=== PATIENT | male | born 1935 | race Caucasian/White ===

== ENCOUNTER 2017-08-23 06:08 | Day surgery (SDC) | payer MEDICARE, BC ==
[2017-08-20 13:02] VITALS: BMI 23.8
--- NOTE | 2017-08-20 15:10 | HP ---
HISTORY AND PHYSICAL Mr. Romero has been coming to the office for history of claudication. His symptoms are becoming disabled affecting both calf area. Patient had a non invasive study which showed bilateral SFA and infrapopliteal occlusive disease. Patient has history of hypertension, chronic kidney disease. We asked for the clearance and the patient was seen by Nephrology out of town from [facility] recommended CO2 angiography. Patient is scheduled to have this procedure on Wednesday. MEDICAL HISTORY: History of hypertension, chronic kidney disease. PERSONAL HISTORY: No known allergies. PHYSICAL EXAMINATION: NECK: Supple, trachea central. CHEST: Clear. ABDOMEN: Soft, nontender. VASCULAR EXAMINATION: Brachial and radial pulses are present. Femorals are palpable. Posterior vascular is not palpable. Central nerves normal motor function. IMPRESSION: SFA and infrapopliteal occlusive disease. PLAN: CO2 angiogram. Risks and complications, bleeding, infection has been discussed. MMODL / IJN: [id number] /
[~2017-08-23 06:08] MED LIST: ALPRAZolam 0.25 MG TAB PO PRN; ASPIRIN 325 MG TAB PO STA; SODIUM CHLORIDE 0.9% 1,000 ML in EMPTY BAG 1 BAG IV ONE
[2017-08-23 06:58] VITALS: TEMP 98
[2017-08-23] MEDS: MIDAZOLAM 2 MG/2 ML VIAL IV ONE ×2 (07:30→07:50)
[2017-08-23] MEDS ORDERED: LIDOCAINE 2% INJ 20 MG/ML SQ ONE ×2 (07:30→07:38)
[2017-08-23 07:59] LABS: Basophils % (A) 1 %; Eosinophils # (A) 0.7 k/uL (0-0.7); Eosinophils % (A) 13 %; HCT 35.8 % (39.0-53.0); HGB 12.4 gm/dL (13.0-17.5); Lymphocytes # (A) 1.3 k/uL (1.0-4.8); Lymphocytes % (A) 26 %; MCH 30.9 pg (25.0-35.0); MCHC 34.7 g/dL (31.0-37.0); MCV 88.9 fL (80.0-100.0); Monocytes # (A) 0.5 k/uL (0-1.0); Monocytes % (A) 10 %; Neutrophils # (A) 2.4 k/uL (1.3-7.7); Neutrophils % (A) 48 %; Platelet Count 196 k/uL (150-450); RBC 4.03 m/uL (4.30-5.90); RDW 12.8 % (11.5-15.5); WBC 4.9 k/uL (3.8-10.6)
[2017-08-23] MEDS ORDERED: fentaNYL (PF) 50 MCG/ML 2 ML AMP IV ONE (08:10)
[2017-08-23 08:22] LABS: Calcium 9.6 mg/dL (8.4-10.2); Potassium 4.2 mmol/L (3.5-5.1)
[2017-08-23] MEDS ORDERED: SODIUM CHLORIDE 0.9% 1,000 ML IV SCH (09:15)
[2017-08-23 10:20] VITALS: BP 147/70; PULSE 78; RESP 18
--- NOTE | 2017-08-23 11:08 | IR ---
EXAMINATION TYPE: IR angio abdominal w runoff DATE OF EXAM: 08/23/2017 COMPARISON: NONE HISTORY: Peripheral vascular occlusive disease. Fluoroscopy was provided to the referring clinician. See dictated report from cardiology.
--- NOTE | 2017-08-23 11:46 | AN ---
ANGIOGRAPHY REPORT PROCEDURE: CO2 angiography with aortogram with runoff. PROCEDURE DESCRIPTION: This patient was brought to the [facility]. Right and left groins were prepped and draped in a sterile manner; 1% lidocaine plain in the right groin and micropuncture introduced to common femoral artery, common femoral were heavily calcified, we could not pass the dilator. Several attempts were made. Then, we chose to go to the left groin and left groin, 1% lidocaine was infiltrated and micropuncture into the left common femoral artery and 4-[place] Islander dilator on the top of the guidewire. Then we passed a regular guidewire which was parked at the renal level and 5-[place] Islander sheath was advanced on the top of the guidewire. Then, we used a pigtail catheter on the top of the guidewire which she was hooked to the CO2 bag. First we did the abdomen, did the aortogram and by injecting the CO2, aorta was found to be patent, but there was some atherosclerosis disease. Right and left common iliac artery was found to be patent. Right and left external iliac artery was patent. Common femoral artery, there was heavy calcification noted in the right common femoral artery, but was patent and left common femoral artery was patent. Profunda, the right and left profunda were found to be patent. Superficial femoral artery, there was a long segment occlusion of the right superficial femoral artery which reconstitutes above the knee on the left side. There was some at the Salomon's canal. There was about 50% stenosis noted of the left superficial femoral artery, infrapopliteal vessel on the right side. The anterior tibial artery was found to be patent proximally, distally was occluded. Posterior tibial has severe atherosclerosis disease, apparently was found to be patent on the left side. Left popliteal is patent and anterior tibial was found to be patent and posterior tibial was found to be patent. Catheter was removed. Sheath was removed. Pressure was held. Patient tolerated the procedure well. PREOP DIAGNOSIS: SFA and infrapopliteal occlusive disease. SECONDARY DIAGNOSIS: Diabetes myelitis. This patient has his history of chronic renal failure and BUN and creatinine were high. We decided to go do the CO2 angiogram which we performed today, which she tolerated well. PLAN: Patient is going home today. Will follow up in the office next week. Puncture site has no hematoma. Pulses are present about the Doppler. MMODL / IJN: [id number] /
--- NOTE | 2017-08-25 14:26 | CDI ---
Outpatient Documentation Clarification Form Date: 08/25/17 CDS/Director Audience Marketing Name: Sonya Baird Phone: If any questions, call Dolly Jones Singing Teacher at [phone] Patient Name: Fortunato Romero Admit Date: 08/23/17 Discharge Date: 08/23/17 ATTENTION: The [facility] Coding Staff appreciate your assistance in clarifying documentation. Please respond to the clarification below the line at the bottom and electronically sign. The [facility] Coding staff will review the response and follow-up if needed. Please note: Queries are made part of the Legal Health Record. If you have any questions, please contact the Singing Teacher. Dear Dr. Rodríguez, The angiography report mentions stenosis of the left SFA and atherosclerosis of the posterior tibial, without mention of side (left or right). Does the patient have atherosclerosis of arteries bilaterally, or only on the left? Thank you for your kind consideration. MTDD
--- NOTE | 2017-08-31 16:02 | CDI ---
Outpatient Documentation Clarification Form Date: 08/25/17 CDS/Undercoat Sprayer Name: Sonya Baird Phone: If any questions, call Dolly Jones Principal Systems Engineer at [phone] Patient Name: Fortunato Romero Admit Date: 08/31/17 Discharge Date: 08/31/17 ATTENTION: The [facility] Coding Staff appreciate your assistance in clarifying documentation. Please respond to the clarification below the line at the bottom and electronically sign. The [facility] Coding staff will review the response and follow-up if needed. Please note: Queries are made part of the Legal Health Record. If you have any questions, please contact the Principal Systems Engineer. Dear Dr. Rodríguez, The angiography report mentions stenosis of the left SFA and atherosclerosis of the posterior tibial, without mention of side (left or right). Does the patient have atherosclerosis of arteries bilaterally, or only on the left? Thank you for your kind consideration. MTDD
--- NOTE | 2017-09-09 15:13 | CDI ---
Outpatient Documentation Clarification Form Date: 09/08/17 CDS/Colorist Formulator Name: Sonya Baird Phone: If any questions, call Dolly Jones Senior Consultant at [phone] Patient Name: Fortunato Romero Admit Date: 08/23/17 Discharge Date: 08/23/17 ATTENTION: The [facility] Coding Staff appreciate your assistance in clarifying documentation. Please respond to the clarification below the line at the bottom and electronically sign. The [facility] Coding staff will review the response and follow-up if needed. Please note: Queries are made part of the Legal Health Record. If you have any questions, please contact the Senior Consultant. Dear Dr. Rodríguez, The angiography report mentions stenosis of the left SFA and atherosclerosis of the posterior tibial, without mention of side (left or right). Does the patient have atherosclerosis of arteries bilaterally, or only on the left? Thank you for your kind consideration. MTDD
== END 2017-08-23 13:30 | disposition home or self-care (01) ==
LOC: CATHCVL 06:08
PROVIDERS: ATTEND Surgery Vascular Surgery
DX: I70.213 Atherosclerosis of native arteries of extremities with intermittent claudication, bilateral legs (principal); I70.0 Atherosclerosis of aorta; I77.9 Disorder of arteries and arterioles, unspecified; E11.51 Type 2 diabetes mellitus with diabetic peripheral angiopathy without gangrene; E11.22 Type 2 diabetes mellitus with diabetic chronic kidney disease; I12.9 Hypertensive chronic kidney disease with stage 1 through stage 4 chronic kidney disease, or unspecified chronic kidney disease; N18.9 Chronic kidney disease, unspecified
CPT/HCPCS: 36200; 75625; 75716; 80048; 85025; C1769 ×5; C1894; J2001; J2250; J3010

== ENCOUNTER → 2018-01-03 | Outpatient (CLI) | payer MEDICARE, BC ==
--- NOTE | 2018-01-03 08:26 | CT ---
EXAMINATION TYPE: CT abdomen pelvis wo con DATE OF EXAM: 01/03/2018 COMPARISON: None HISTORY: weight loss and pain CT DLP: 280.7 mGycm Examination of the solid and hollow viscera is limited given the lack of contrast. FINDINGS: LUNG BASES: Small basilar fibrosis noted. Nonspecific Nodular density measuring 7.8 mm left lower lob e. LIVER/GB: The gallbladder is unremarkable. No space-occupying hepatic lesion. PANCREAS: No pancreatic mass identified. No inflammatory process seen. SPLEEN: No evidence for splenomegaly. No intrasplenic lesions seen. ADRENALS: No adrenal nodules identified. No evidence for thickening. KIDNEYS: No evidence for solid renal mass. Hypoattenuating lesion mid pole right kidney posteriorly m easuring 1.3 cm. No nephrolithiasis. No hydronephrosis. BOWEL: Small sliding-type hiatal hernia. Appendix has a normal appearance. No evidence of bowel obstr uction. No inflammatory process. Small left inguinal hernia containing a small segment of colon. Lymph nodes: No evidence for adenopathy greater than 1 cm. Abdominal aorta: Extensive atheromatous changes abdominal aorta. Dense calcification at the origins o f the celiac and SMA vessels and proximal branches. No evidence for aneurysm. Genital organs: No significant abnormality. Other: No significant abnormality. IMPRESSION: 1.Extensive atheromatous changes abdominal aorta. Dense calcification at the origins of the celiac an d SMA vessels and proximal branches. 2.Small left inguinal hernia containing a small segment of colon. 3.Nonspecific Nodular density measuring 7.8 mm left lower lobe.
== END | disposition home or self-care (01) ==
LOC: RADCTMAIN 07:44
PROVIDERS: ATTEND General Practice
DX: K40.90 Unilateral inguinal hernia, without obstruction or gangrene, not specified as recurrent (principal); I70.0 Atherosclerosis of aorta
CPT/HCPCS: 74176

== ENCOUNTER → 2018-02-03 | Outpatient (CLI) | payer MEDICARE, BC ==
--- NOTE | 2018-02-03 14:18 | CT ---
EXAMINATION TYPE: CT ChestAbdPelvis wo con DATE OF EXAM: 02/03/2018 COMPARISON: Abdomen and pelvis 01/03/2018 HISTORY: 82-year-old male pelvic pain syndrome, abdominal pain, solitary pulmonary nodule abnormal fi nding on left lung TECHNIQUE: Contiguous axial scanning of the chest, abdomen, and pelvis without IV contrast. Coronal a nd sagittal reconstructions performed. CT DLP: 371.0 mGycm Automated exposure control for dose reduction was used. FINDINGS: Chest: Heart normal size without pericardial effusion. Coronary vessel calcifications are present. Aorta normal caliber with conventional arch vessel branching anatomy. Mild sclerotic arch calcificati ons. A few scattered nonenlarged mediastinal lymph nodes. No thoracic lymphadenopathy by CT size criteria. Subpleural reticulations throughout the bilateral lungs. There is a 8 mm peripheral left lower lobe p ulmonary nodule, axial image 46. No consolidation or pleural effusion. No additional suspicious pulmonary nodule or mass is seen. ABDOMEN: Small hiatal hernia. Noncontrast appearance of the liver, gallbladder, adrenal glands, spleen, and pancreas show no gross abnormality. 1.3 cm exophytic hypodense lesion posterior right kidney and 7 mm exophytic hypodense lesion medial l eft kidney, both of which are too small for accurate CT characterization but were present previously and suggestive of cysts. No nephrolithiasis or hydronephrosis. Moderate atherosclerotic calcifications throughout the abdominal aorta and iliac arteries with variab le atelectatic calcification at the origins of the celiac axis, SMA, and left renal artery. There is 2.3 cm fusiform dilatation of the infrarenal abdominal aorta without thomas aneurysm. No dilated small bowel, free fluid, or free air. Normal appendix. Mild stool burden. Mild diverticulosis of the junction of the descending and sigmoid colon. No liyah lonic inflammatory change. No mesenteric or retroperitoneal lymphadenopathy seen. Pelvis: Mild circumference of bladder wall thickening. Prostate gland measures 3.5 cm wide. Suggestion of alison ateral hydroceles. No abnormal fluid collection otherwise seen in the pelvis or pelvic lymphadenopath y. Bones: Mild degenerative changes of both hips. Mild degenerative changes throughout the visualized spine. No osseous destructive process. IMPRESSION: 1. MILD INTERSTITIAL FIBROSIS WITH AN 8 MM PERIPHERAL LEFT LOWER LOBE PULMONARY NODULE. 6 MONTH FOLLO W-UP CT RECOMMENDED. 2. SMALL HIATAL HERNIA AND MILD DIVERTICULOSIS IN THE DISTAL COLON. 3. SUGGESTION OF BILATERAL SCROTAL HYDROCELES, PARTIALLY IMAGED. DEDICATED SCROTAL ULTRASOUND IF CLIN ICALLY INDICATED.
== END | disposition home or self-care (01) ==
LOC: RADCTMAIN 11:38
PROVIDERS: ATTEND General Practice
DX: K44.9 Diaphragmatic hernia without obstruction or gangrene (principal); K57.30 Diverticulosis of large intestine without perforation or abscess without bleeding; J84.10 Pulmonary fibrosis, unspecified; R91.1 Solitary pulmonary nodule
CPT/HCPCS: 71250; 74176

== ENCOUNTER → 2018-07-25 | Outpatient (CLI) | payer MEDICARE, BC ==
--- NOTE | 2018-07-25 09:48 | CT ---
EXAMINATION TYPE: CT chest wo con DATE OF EXAM: 07/25/2018 COMPARISON: Prior CT 02/03/2018 HISTORY: Solitary pulmonary nodule CT DLP: 224.4 mGycm. Automated Exposure Control for Dose Reduction was Utilized. TECHNIQUE: CT scan of the thorax is performed without IV contrast. FINDINGS: Lack of contrast could compromise sensitivity. LUNGS: The lungs are remarkable for interstitial changes, nodular density in the subpleural location in the left lower lobe is stable. There is no pleural effusion or pneumothorax seen. The tracheobr onchial tree is patent. MEDIASTINUM: Lack of IV contrast is noted to limit evaluation for mediastinal and especially hilar ad enopathy. There are no definitive greater than 1 cm hilar or mediastinal lymph nodes. No cardiomega ly or pericardial effusion is seen. OTHER: There are dense coronary artery calcifications as on prior exam. Dense mesenteric, atheroscler otic aortic calcifications are present. Exophytic probable cortical cyst present upper pole right kid karen measures approximately 14 mm similar to prior exam, smaller lesion in the medial aspect of the le ft kidney midpole is also stable. IMPRESSION: No significant interval change.
--- NOTE | 2018-07-25 11:10 | US ---
EXAMINATION TYPE: US scrotum with doppler. Grayscale and color Doppler Duplex imaging performed of t bertin scrotum. DATE OF EXAM: 07/25/2018 COMPARISON: NONE CLINICAL HISTORY: R91.1 Solitary Pulmonary Nodule N50.82 Pain. EXAM MEASUREMENTS: TESTICLES: Right Testicle: 4.9 x 2.1 x 3.4 cm Left Testicle: 4.8 x 2.5 x 3.4 cm EPIDIDYMIS HEAD: Right Epididymis: 0.8 cm Left Epididymis: 0.8 cm Doppler performed to assess for testicular vascularity; good bilateral color flow and waveforms are s een. There is no evidence of testicular torsion. Presence of hydroceles: small right hydrocele measuring 1.2 x 0.8 x 1.5cm Presence of varicoceles: no IMPRESSION: Small right hydrocele is seen. Otherwise unremarkable testicular ultrasound.
== END | disposition home or self-care (01) ==
LOC: RADCTMAIN 07:23
PROVIDERS: ATTEND General Practice
DX: N43.3 Hydrocele, unspecified (principal); R91.1 Solitary pulmonary nodule; Z87.891 Personal history of nicotine dependence
CPT/HCPCS: 71250; 76870; 93975

== ENCOUNTER → 2021-12-22 | Outpatient (CLI) | payer MEDICARE ==
--- NOTE | 2021-12-22 13:45 | CT ---
EXAMINATION TYPE: CT ChestAbdPelvis wo con DATE OF EXAM: 12/22/2021 COMPARISON: Prior whole body CT February 03, 2018 HISTORY: WEIGHT LOSS CT DLP: 350.5 mGycm. Automated Exposure Control for Dose Reduction was Utilized. TECHNIQUE: CT scan of the thorax, abdomen and pelvis is performed without oral or IV contrast. FINDINGS: LUNGS: Moderate peripheral reticulation and fibrotic change bilaterally is redemonstrated. Stable 8 m m peripheral left lower lobe nodule axial image 50. No pleural effusion or pneumothorax seen bilatera lly. No new or enlarging greater than 6 mm pulmonary nodules or masses. No suspicious focal consolida tion. MEDIASTINUM: There are no new greater than 1 cm mediastinal lymph nodes. No cardiomegaly or perica rdial effusion is seen. Severe three-vessel coronary artery calcification is redemonstrated. LIVER/GB: No significant abnormality is appreciated. PANCREAS: No significant abnormality is seen. SPLEEN: No significant abnormality is seen. ADRENALS: No significant abnormality is seen. KIDNEYS: No significant abnormality is seen. BOWEL: Suboptimal evaluation without enteric contrast. No suspicious small large bowel dilatation. Fe w diverticula in the sigmoid colon left pelvis. GENITAL ORGANS: Mildly enlarged prostate consistent with BPH. LYMPH NODES: No greater than 1cm abdominal or pelvic lymph nodes are appreciated. OSSEOUS STRUCTURES: Osseous structures are demineralized. Facet arthropathy lower lumbar spine. OTHER: Moderate to severe calcified plaque of the aorta extends into branch vessels. IMPRESSION: No obvious new mass or adenopathy on noncontrast CT.
== END | disposition home or self-care (01) ==
LOC: RADCTMAIN 12:54
PROVIDERS: ATTEND Internal Medicine
DX: R63.4 Abnormal weight loss (principal)
CPT/HCPCS: 71250; 74176

== ENCOUNTER → 2023-12-22 | Outpatient (CLI) | payer MEDICARE ==
[2023-12-22 15:18] LABS: Basophils # (A) 0.06 X 10*3/uL (0.00-0.10); Eosinophils # (A) 1.01 X 10*3/uL (0.04-0.35); HCT 36.2 % (39.6-50.0); HGB 12.1 g/dL (13.0-17.0); Lymphocytes # (A) 1.69 X 10*3/uL (0.90-5.00); Lymphocytes % (A) 28.4 %; MCH 32.3 pg (27.0-32.0); MCHC 33.4 g/dL (32.0-37.0); MCV 96.5 FL (80.0-97.0); Mean Platelet Volume 11.3 FL (9.5-12.2); Monocytes # (A) 0.67 X 10*3/uL (0.20-1.00); Monocytes % (A) 11.3 %; NRBC Per 100 WBC 0 X 10*3/uL (0.00-0.01); Platelet Count 164 X 10*3/uL (140-440); RBC 3.75 X 10*6/uL (4.40-5.60); RDW 13.3 % (11.5-14.5); WBC 5.95 X 10*3/uL (4.50-10.00)
[2023-12-22 15:36] LABS: ALT 16 U/L (10-49); AST 28 U/L (14-35); Albumin 4.4 g/dL (3.8-4.9); Alkaline Phosphatase 53 U/L (41-126); BUN/Creat Ratio 12.18 Ratio (12.00-20.00); Blood Urea Nitrogen 20.7 mg/dL (9.0-27.0); Calcium 9.6 mg/dL (8.7-10.3); Chloride 101 mmol/L (96-109); Chol/HDL Ratio 1.84 Ratio; Glucose 104 mg/dL (70-110); LDL Cholesterol,Calculated 45.3 mg/dL (0.0-131.0); Potassium 5.4 mmol/L (3.5-5.5); Sodium 133 mmol/L (135-145); T4, Free (Free Thyroxine) 1.47 ng/dL (0.80-1.80); Total Bilirubin 0.7 mg/dL (0.3-1.2); Total Protein 6.4 g/dL (6.2-8.2)
== END | disposition home or self-care (01) ==
LOC: LABWHC1 08:59
PROVIDERS: ATTEND Internal Medicine
DX: I10 Essential (primary) hypertension (principal); E78.5 Hyperlipidemia, unspecified; E03.9 Hypothyroidism, unspecified; D64.9 Anemia, unspecified; R73.9 Hyperglycemia, unspecified
CPT/HCPCS: 36415; 80053; 80061; 82607; 82746; 83036; 84439; 84443; 85025

== ENCOUNTER → 2023-12-27 | Outpatient (CLI) | payer MEDICARE ==
--- NOTE | 2024-01-27 19:33 | CT ---
Patient Nick Bucio T ID [id number] Order # EXAMINATION TYPE: CT chest wo con DATE OF EXAM: 01/07/2024 COMPARISON: No comparison available on downtime PACS. HISTORY: Lung nodule CT DLP: 162.50 mGycm, Automated exposure control for dose reduction was used. CONTRAST: Performed injected with 0 mL of Isovue 300. TECHNIQUE: Axial images were obtained at 5 mm thick sections. Reconstructed images are reviewed on [employer] computer in the coronal plane. FINDINGS: Portion of the thyroid visualized is normal. Infiltrate is in the periphery of the lateral right apex. This is along the pleural margin measuring approximately 2.5 x 1.1 cm. Follow-up is recommended. There is a 0.6 cm nodule anterior right midlung. Series 4 image 34. Follow-up exam in 6 months is rec ommended. There is a punctate peripheral nodular density anterior lateral right lung. Series 4 image 37. There is a 0.7 cm peripheral nodule posterior lateral left lung. Series 4 image 48. There are multiple peripheral scattered areas of increased density. Some paraseptal emphysematous jennifer nge may be present. No enlarged mediastinal or hilar adenopathy is evident. The ascending aorta diameter at the level o f the main pulmonary artery is 3.2 cm. The main pulmonary artery diameter at the bifurcation is 2.4 cm. Coronary artery calcification is present. Limited CT sections are obtained through the upper abdomen. Abdomen is essentially unremarkable. IMPRESSION: 1. Scattered small nodules in infiltrate discussed above. 2. Findings likely superimposed on emphysematous change. Consider paraseptal emphysema. 3. Comparison images are unavailable to evaluate for interval change this time.
== END | disposition home or self-care (01) ==
LOC: RADCTMAIN 10:45
PROVIDERS: ATTEND Internal Medicine
DX: R91.8 Other nonspecific abnormal finding of lung field (principal)
CPT/HCPCS: 71250

== ENCOUNTER → 2024-06-23 | Outpatient (CLI) | payer MEDICARE ==
--- NOTE | 2024-06-23 15:04 | CT ---
EXAMINATION TYPE: CT chest wo con DATE OF EXAM: 06/23/2024 COMPARISON: 12/27/2023 HISTORY: 88-year-old male R91.1 f/u lung nodules TECHNIQUE: Contiguous axial scanning of the chest without IV contrast. Coronal/sagittal reconstructio ns performed. CT DLP: 132.5mGycm. Automatic exposure control utilized for a dose reduction. FINDINGS: The heart is normal size without pericardial effusion. LAD and RCA coronary calcifications are presen t. Aorta normal caliber with possible mild or moderate atherosclerotic narrowing at the origin of the le ft subclavian artery. Borderline to mild enlarged caliber main right and left pulmonary arteries up to 2.6 cm may reflect u nderlying pulmonary hypertension. No thoracic lymphadenopathy by CT size criteria. Subpleural reticular and microcystic change along with mild groundglass throughout the lungs. Mild bi apical pleural-parenchymal scarring. No consolidation or pleural effusion. There is a 7 mm posterior left lower lobe pulmonary nodule which remains unchanged compatible with a benign etiology. A couple additional tiny 4 mm smaller pulmonary nodules are unchanged as well. Visualized upper abdomen shows a benign cortical cyst posterior right kidney measuring 1.8 cm and mod erate to severe atherosclerotic calcifications of the abdominal aorta and celiac axis/SMA. Bones: Moderate degenerative disc disease mid to lower thoracic spine. IMPRESSION: 1. Stable 7 mm left lower lobe pulmonary nodule compatible with a benign etiology. 2. Redemonstrated peripheral interstitial changes in the lungs characterized by groundglass, reticula r and subpleural microcystic change. Not significantly changed from 12/27/2023. Consider interstitial p neumonitis such as NSIP or chronic hypersensitivity pneumonitis. If no established diagnosis and if c linically warranted, consider pulmonary medicine referral for further evaluation. 3. Possible underlying pulmonary hypertension. 4. LAD and RCA coronary artery calcifications. [facility], Workstation: [id number], 06/23/2024 3:01 PM
== END | disposition home or self-care (01) ==
LOC: RADCTMAIN 10:46
PROVIDERS: ATTEND Internal Medicine
DX: R91.1 Solitary pulmonary nodule (principal); I25.10 Atherosclerotic heart disease of native coronary artery without angina pectoris; J84.89 Other specified interstitial pulmonary diseases
CPT/HCPCS: 71250

== ENCOUNTER → 2024-06-27 | Outpatient (CLI) | payer MEDICARE ==
[2024-06-27 19:09] LABS: Basophils # (A) 0.08 X 10*3/uL (0.00-0.10); Basophils % (A) 1.3 %; Eosinophils # (A) 1.07 X 10*3/uL (0.04-0.35); HCT 35.6 % (39.6-50.0); HGB 11.4 g/dL (13.0-17.0); Lymphocytes # (A) 1.75 X 10*3/uL (0.90-5.00); Lymphocytes % (A) 27.8 %; MCH 31.8 pg (27.0-32.0); MCV 99.2 FL (80.0-97.0); Mean Platelet Volume 11.2 FL (9.5-12.2); Monocytes # (A) 0.64 X 10*3/uL (0.20-1.00); Monocytes % (A) 10.2 %; NRBC Per 100 WBC 0 X 10*3/uL (0.00-0.01); Neutrophils # (A) 2.74 X 10*3/uL (1.80-7.70); Neutrophils % (A) 43.4 %; Platelet Count 185 X 10*3/uL (140-440); RBC 3.59 X 10*6/uL (4.40-5.60); RDW 13.4 % (11.5-14.5)
[2024-06-27 19:53] LABS: % Iron Saturation 33.94 (15.00-50.00); ALT 15 U/L (10-49); AST 28 U/L (14-35); Albumin 4.2 g/dL (3.8-4.9); Albumin/Globulin Ratio 1.83 Ratio (1.60-3.17); Alkaline Phosphatase 66 U/L (41-126); Blood Urea Nitrogen 13.3 mg/dL (9.0-27.0); Calcium 9.5 mg/dL (8.7-10.3); Carbon Dioxide 23.7 mmol/L (21.6-31.8); Chloride 99 mmol/L (96-109); Chol/HDL Ratio 2.06 Ratio; Globulin 2.3 g/dL (1.6-3.3); Glucose 107 mg/dL (70-110); Iron 93 UG/DL (65-175); LDL Cholesterol,Calculated 72.5 mg/dL (0.0-131.0); Magnesium 2.1 mg/dL (1.5-2.4); Potassium 4.8 mmol/L (3.5-5.5); Sodium 133 mmol/L (135-145); T4, Free (Free Thyroxine) 1.37 ng/dL (0.80-1.80); Total Bilirubin 0.6 mg/dL (0.3-1.2); Total Iron Binding Capacity 274 UG/DL (228-460); Total Protein 6.5 g/dL (6.2-8.2); VLDL Calculation 8.18 mg/dL (5.00-40.00)
== END | disposition home or self-care (01) ==
LOC: LABWHC1 10:16
PROVIDERS: ATTEND Internal Medicine
DX: I12.9 Hypertensive chronic kidney disease with stage 1 through stage 4 chronic kidney disease, or unspecified chronic kidney disease (principal); N18.30 Chronic kidney disease, stage 3 unspecified; D63.1 Anemia in chronic kidney disease; E03.9 Hypothyroidism, unspecified
CPT/HCPCS: 36415; 80053; 80061; 82607; 82728; 82746; 83540; 83550; 83735; 83970; 84439; 84443; 85025

== ENCOUNTER → 2024-07-20 | Outpatient (CLI) | payer MEDICARE ==
[2024-07-20 15:27] LABS: BUN/Creat Ratio 11.36 Ratio (12.00-20.00); Blood Urea Nitrogen 15.9 mg/dL (9.0-27.0); Calcium 9.5 mg/dL (8.7-10.3); Carbon Dioxide 26.4 mmol/L (21.6-31.8); Chloride 97 mmol/L (96-109); Glucose 101 mg/dL (70-110); Sodium 132 mmol/L (135-145)
== END | disposition home or self-care (01) ==
LOC: LABWHC1 09:20
PROVIDERS: ATTEND Internal Medicine
DX: R60.0 Localized edema (principal)
CPT/HCPCS: 36415; 80048

== ENCOUNTER → 2024-11-21 | Outpatient (CLI) | payer MEDICARE ==
[2024-11-21 14:59] LABS: Basophils # (A) 0.09 X 10*3/uL (0.00-0.10); Basophils % (A) 1.7 %; Eosinophils # (A) 1.14 X 10*3/uL (0.04-0.35); Eosinophils % (A) 21.8 %; HCT 30.9 % (39.6-50.0); HGB 10.2 g/dL (13.0-17.0); Immature Grans, Automated 0.40 %; Lymphocytes # (A) 1.51 X 10*3/uL (0.90-5.00); Lymphocytes % (A) 28.9 %; MCH 31.6 pg (27.0-32.0); MCHC 33.0 g/dL (32.0-37.0); MCV 95.7 FL (80.0-97.0); Monocytes # (A) 0.72 X 10*3/uL (0.20-1.00); Monocytes % (A) 13.8 %; NRBC Per 100 WBC 0 X 10*3/uL (0.00-0.01); Neutrophils # (A) 1.75 X 10*3/uL (1.80-7.70); Neutrophils % (A) 33.4 %; Platelet Count 174 X 10*3/uL (140-440); RBC 3.23 X 10*6/uL (4.40-5.60); RDW 13.5 % (11.5-14.5); WBC 5.23 X 10*3/uL (4.50-10.00)
[2024-11-21 15:59] LABS: ALT 16 U/L (10-49); AST 30 U/L (14-35); Albumin 4.1 g/dL (3.8-4.9); Albumin/Globulin Ratio 2.28 Ratio (1.60-3.17); Alkaline Phosphatase 55 U/L (41-126); Anion Gap 8.30 mmol/L (4.00-12.00); BUN/Creat Ratio 10.14 Ratio (12.00-20.00); Blood Urea Nitrogen 14.2 mg/dL (9.0-27.0); Calcium 9.3 mg/dL (8.7-10.3); Carbon Dioxide 25.7 mmol/L (21.6-31.8); Chloride 99 mmol/L (96-109); Cholesterol 135.00 mg/dL (0.00-200.00); Ferritin 319.0 ng/mL (22.0-322.0); Globulin 1.8 g/dL (1.6-3.3); Glucose 98 mg/dL (70-110); HDL Cholesterol 71.60 mg/dL (40.00-60.00); Iron 80 UG/DL (65-175); LDL Cholesterol,Calculated 54.2 mg/dL (0.0-131.0); Magnesium 2.1 mg/dL (1.5-2.4); Potassium 4.5 mmol/L (3.5-5.5); Sodium 133 mmol/L (135-145); T4, Free (Free Thyroxine) 1.42 ng/dL (0.80-1.80); Total Iron Binding Capacity 253 UG/DL (228-460); Total Protein 5.9 g/dL (6.2-8.2); Triglycerides 46.10 mg/dL (0.00-149.00); VLDL Calculation 9.22 mg/dL (5.00-40.00)
[2024-11-21 16:00] LABS: Vitamin B12 421.0 pg/mL (200.0-944.0)
== END | disposition home or self-care (01) ==
LOC: LABWHC1 09:56
PROVIDERS: ATTEND Internal Medicine
DX: E03.9 Hypothyroidism, unspecified (principal); E78.5 Hyperlipidemia, unspecified; D64.9 Anemia, unspecified
CPT/HCPCS: 36415; 80053; 80061; 82607; 82728; 82746; 83036; 83540; 83550; 83735; 84439; 84443; 85025

== ENCOUNTER → 2024-12-07 | Outpatient (CLI) | payer MEDICARE ==
--- NOTE | 2024-12-07 10:36 | US ---
EXAMINATION TYPE: US venous doppler duplex LE BI DATE OF EXAM: 12/07/2024 10:20 AM COMPARISON: NONE CLINICAL INDICATION: Male, 89 years old with history of R60.0 LOCALIZED EDEMA; pain and swelling with left > right, no redness, on aspirin TECHNIQUE: The lower extremity deep venous system is examined utilizing real time linear array sonog roni with graded compression, doppler sonography and color-flow sonography. Grayscale, color doppler , spectral doppler imaging performed of the deep veins of the lower extremities FINDINGS: SIDE PERFORMED: Bilateral VESSELS IMAGED: Common Femoral Vein Deep Femoral Vein Greater Saphenous Vein * Femoral Vein Popliteal Vein Small Saphenous Vein * Proximal Calf Veins (* superficial vessels) Right Leg: Negative for DVT; There is normal flow, compressibility, vascular waveforms. Left Leg: Negative for DVT; There is normal flow, compressibility, vascular waveforms. IMPRESSION: No evidence for DVT within the bilateral lower extremities imaged from the groin to the upper calves. [facility], , 12/07/2024 10:33 AM
== END | disposition home or self-care (01) ==
LOC: RADUSWWP 09:41
PROVIDERS: ATTEND Internal Medicine
DX: R60.0 Localized edema (principal)
CPT/HCPCS: 93970